=== PATIENT | female | born 1975 | race American Indian/Alaskan Native ===

== ENCOUNTER 2017-09-03 12:51 | Emergency (ER) | payer MEDICAID, OTHER ==
[2017-09-03 13:08] VITALS: BP 94/52
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
== END 2017-09-03 16:08 | disposition home or self-care (01) ==
LOC: ED 12:51
DX: J01.10 Acute frontal sinusitis, unspecified (principal); J01.00 Acute maxillary sinusitis, unspecified; J40 Bronchitis, not specified as acute or chronic; F17.200 Nicotine dependence, unspecified, uncomplicated; Z88.6 Allergy status to analgesic agent; Z88.0 Allergy status to penicillin; Z88.8 Allergy status to other drugs, medicaments and biological substances
CPT/HCPCS: 99282